=== PATIENT | female | born 1940 | race Caucasian/White ===

== ENCOUNTER 2019-06-28 06:44 | Day surgery (SDC) ==
[2019-06-21 17:21] LABS: URINE SOURCE CLEAN CATCH
--- NOTE | 2019-06-21 17:22 | EKG Report ---
Test Performed on : 06/21/2019 5:06:38 PM Test Reason : PAT Blood Pressure : / mmHG Vent. Rate : 087 BPM Atrial Rate : 087 BPM P-R Int : 226 ms QRS Dur : 110 ms QT Int : 362 ms P-R-T Axes : 041 -04 051 degrees QTc Int : 435 ms Sinus rhythm. with 1st degree AV block. Minimal voltage criteria for LVH, may be normal variant Cannot rule out Anterior infarct , age undetermined Abnormal ECG No previous ECGs available Confirmed by Daly Bergeron MD ([id number]) on 06/23/2019 12:16:01 PM
[2019-06-21 17:24] LABS: BASO# 0.05 X1000 (0.0-0.2); BASO% 0.8 % (0.0-0.8); BILIRUBIN URINE NEGATIVE (NEGATIVE); BLOOD URINE TRACE (NEGATIVE); COLOR YELLOW; EOS# 0.24 X1000 (0.0-0.7); EOS% 3.6 % (0.0-10.0); GLUCOSE URINE NEGATIVE (NEGATIVE); HEMOGLOBIN 12.7 g/dL (12.0-16.0); IMM GRAN# 0.02 X1000 (0.0-0.04); IMM GRAN% 0.3 % (0.0-0.5); KETONE URINE NEGATIVE (NEGATIVE); LEUKOCYTES URINE SMALL (NEGATIVE); LYMPH# 2.14 X1000 (1.2-3.4); LYMPH% 32.4 % (20.5-51.1); MCH 29.7 PG (27-31); MCHC 31.8 g/dL (33-37); MCV 93.5 FL (81-99); MONO# 0.69 X1000 (0.11-0.59); MONO% 10.4 % (1.7-9.3); MPV 9.5 FL (7.4-10.4); NEUT# 3.47 X1000 (1.4-6.5); NEUT% 52.5 % (42.2-75.2); NITRITE URINE NEGATIVE (NEGATIVE); PH URINE 5.5; PLT 263 X1000 (130-400); PROTEIN URINE NEGATIVE (NEGATIVE); RBC 4.28 XMIL (4.2-5.4); RDW 13.1 % (11.5-14.5); SP GRAVITY URINE 1.022; TURBIDITY URINE CLEAR (CLEAR); UR EPITHELIAL CELLS <10 /HPF (<10); URINE BACTERIA 1+ /HPF; URINE RBC <10 /HPF (<10); UROBILINOGEN URINE NORMAL (NORMAL); WBC 6.61 X1000 (4.8-10.8)
[2019-06-21 17:37] LABS: PTT 30.3 Seconds (22.3-41.8)
[2019-06-21 17:47] LABS: HEMOGLOBIN A1C 5.5 % (4.8-6.0)
[2019-06-21 17:51] LABS: INR 1.05; PROTIME 13.8 Seconds (11.0-16.0)
[2019-06-21 18:04] LABS: ALBUMIN 3.8 g/dL (3.5-5.0); CALCIUM 9.2 mg/dL (8.8-10.2); CREATININE 0.9 mg/dL (0.5-0.9); POTASSIUM 4.1 mmol/L (3.5-5.1)
[2019-06-28] MEDS ORDERED: PEPCID ONE (07:12)
[2019-06-28] MEDS ORDERED: COLACE ONE (07:12)
[2019-06-28] MEDS ORDERED: REGLAN ONE (07:12)
[2019-06-28] MEDS ORDERED: KEFZOL 1 GM/D5W 2 GM/100 ML IVPB ONE (07:13)
[2019-06-28] MEDS ORDERED: LR 1,000 ML ONE (07:13)
[2019-06-28] MEDS ORDERED: CELEBREX ONE (07:13)
[2019-06-28] MEDS ORDERED: LYRICA ONE (07:13)
[2019-06-28] MEDS ORDERED: DIPRIVAN 1% ONE ×2 (07:48→10:14)
[2019-06-28] MEDS ORDERED: FENTANYL ONE (08:13)
[2019-06-28] MEDS ORDERED: TORADOL ONE (08:27)
[2019-06-28] MEDS ORDERED: VANCOMYCIN ONE (08:27)
[2019-06-28] MEDS ORDERED: SODIUM CHLORIDE 0.9% ONE (08:27)
[2019-06-28] MEDS ORDERED: DURAMORPH ONE (08:27)
[2019-06-28] MEDS ORDERED: SENSORCAINE 0.25%/EPI 1:200,000 ONE (08:27)
[2019-06-28] MEDS ORDERED: NEOSPORIN G.U. IRRIGANT ONE (08:27)
[2019-06-28] MEDS ORDERED: EXPAREL 1.3% ONE (08:27)
[2019-06-28] MEDS ORDERED: VERSED ONE (08:46)
[2019-06-28] MEDS: CYKLOKAPRON 1,000 MG/NS 2,000 MG/200 ML IVPB ONE ×2 (09:07→10:20)
[2019-06-28] MEDS ORDERED: OFIRMEV 1000 MG/ISOTONIC SOLN 1,000 MG/100 ML BOTTLE ONE (09:30)
[2019-06-28] MEDS ORDERED: DECADRON ONE (09:30)
[2019-06-28] MEDS ORDERED: XYLOCAINE-MPF 2% ONE (09:30)
[2019-06-28] MEDS ORDERED: NEO-SYNEPHRINE ONE (10:47)
[2019-06-28 10:55] LABS: URINE SOURCE CATH
[2019-06-28 11:01] LABS: BILIRUBIN URINE NEGATIVE (NEGATIVE); BLOOD URINE NEGATIVE (NEGATIVE); COLOR YELLOW; GLUCOSE URINE NEGATIVE (NEGATIVE); KETONE URINE NEGATIVE (NEGATIVE); LEUKOCYTES URINE NEGATIVE (NEGATIVE); NITRITE URINE NEGATIVE (NEGATIVE); PH URINE 6.5; PROTEIN URINE NEGATIVE (NEGATIVE); SP GRAVITY URINE 1.018; TURBIDITY URINE CLEAR (CLEAR); UR EPITHELIAL CELLS <10 /HPF (<10); URINE BACTERIA NEGATIVE /HPF; URINE RBC <10 /HPF (<10); URINE WBC <10 /HPF (<10); UROBILINOGEN URINE NORMAL (NORMAL)
[2019-06-28] MEDS ORDERED: NS 1,000 ML ONE (11:26)
[2019-06-28] MEDS ORDERED: MORPHINE IV PRN ×3 (11:30)
[2019-06-28] MEDS ORDERED: OXY IR PO PRN (11:30)
[2019-06-28] MEDS ORDERED: ZOFRAN PO PRN (11:30)
[2019-06-28] MEDS ORDERED: OXY IR ONE (11:47)
--- NOTE | 2019-06-28 12:02 | OPERATIVE NOTE ---
PROCEDURE DATE: 06/28/2019 PREOPERATIVE DIAGNOSIS: Degenerative arthritis, left knee. POSTOPERATIVE DIAGNOSIS: Degenerative arthritis, left knee. PROCEDURE: Left total knee arthroplasty with DePuy Attune size 6 posterior stabilized femur, a size 5 tibial tray, a 6 mm rotating platform tibial insert, and a 35 mm medialized anatomic patella. SURGEON: Felix Prieto MD. WAVE SOLDERING MACHINE OPERATOR: MICHELLE Trimble, who was necessary for proper retraction and manipulation of the extremity during the case and improved efficiency. SECOND SCOURER: Ranjan Awan RN. ANESTHESIA: Spinal. IV FLUIDS: 1000 mL lactated Ringer's. ESTIMATED BLOOD LOSS: 30 mL. TOURNIQUET TIME: 80 minutes at 300 mmHg. COMPLICATIONS: None. INDICATIONS: The patient is an 79-year-old female with a chronic history of worsening pain and discomfort of the left knee. X-rays revealed degenerative osteoarthritis. Recommendation to proceed with left total knee arthroplasty was offered. Risks and benefits of surgery were explained, including the risks of anesthesia, , bleeding, infection, failure to relieve pain, postoperative stiffness, nerve injury, blood clots, and other imponderables. All questions were answered. The patient and family wished to proceed with surgery. DETAILS OF OPERATION: The patient was taken to the operating room and underwent spinal anesthesia. After adequate anesthesia was obtained, the patient placed supine on the operating table. The left lower extremity was subsequently prepped and draped in the usual sterile fashion. A standard anterior incision was made with a skin knife. Medial and lateral skin envelopes were developed. Standard medial parapatellar arthrotomy was then performed. Patella fat pad was excised. Approximately 1 cm anterior to the PCL insertion, a starting reamer was passed. Intramedullary guide with a distal cutting block was pinned in position. Distal cut was then performed in standard fashion. A sizing block was placed and measured size 6, corresponding pins were placed. A size 6 cutting block was placed in position, and anterior, posterior, and chamfer cuts were then made. After this had been performed, attention was then turned to the proximal tibia where using the extramedullary guide proximal tibia cutting block was pinned in position, had good alignment, confirmed with the alignment kathy. The proximal tibia was then resected. Medial and lateral menisci were excised. A curved osteotome was used to remove the posterior osteophytes off the distal femur. A spacer block was placed and there was good soft tissue balance in both flexion and extension. Attention was turned back to the proximal tibia where a size 5 tibial tray appeared to be correct size. This was pinned into position. This followed by a central reamer and a fin punch. After this had been performed, box cutting guide was pinned on the distal femur and box cut was then performed. After this had been performed, the trial femoral component was then placed and 2 lug holes were drilled. Trial tibial insert was then placed and good soft tissue balancing. The patella was everted and resected in standard fashion. Three small drill holes were drilled and the trial patella component was then placed and the patella was reduced and carried through range of motion, had good patellofemoral tracking. The trial components were then removed. Copious irrigation was performed with antibiotic pulsatile lavage while vancomycin was mixed with cement on the back table. Sequential cementing was then performed, first with the tibial tray and excess cement was removed with a Newton followed by the femoral component and then excess cement was removed with a Newton followed by trial tibial insert in full extension and axial loading was maintained while cement cured. Patella component was cemented in standard fashion, patella clamp was placed. While cement was curing, Exparel was placed in deep soft tissue as well as subcutaneous tissue. After the cement had cured, peripheral cement was removed with a small osteotome. The 6 mm rotating platform tibial insert appeared to correct size and the trial insert was removed. Exparel was placed in deep posterior capsule. The wound was copiously irrigated. A 6 mm rotating platform tibial insert was then placed. The knee was then reduced and carried through range of motion, good range of motion, good soft tissue balance, and good patellofemoral tracking. A 1/8 Hemovac drain was placed and was not sewn in. Copious irrigation was performed once again with antibiotic pulsatile lavage. Number 1 Vicryl was used to repair the arthrotomy followed by 2-0 Vicryl repair for subcutaneous tissue and skin luis e. Adaptic, sterile 4 x 4, Webril, and Lincoln wrap was applied to the left lower extremity. The patient tolerated the procedure well, no complications, was transferred to the recovery room in stable condition cc: Felix Prieto MD
--- NOTE | 2019-06-28 12:06 | Diag Imaging Result Doc PS360 ---
KNEE 1-2 VIEWS-LEFT - 06/28/2019 INDICATION: post op total knee TECHNIQUE: Two views COMPARISON: None FINDINGS: There has been left total knee arthroplasty with patellar resurfacing. Alignment is anatomic. No hardware fracture or loosening. IMPRESSION: No complication. Electronically signed by Rony Mackay 06/28/2019 12:03 PM
[2019-06-28] MEDS: COREG PO SCH ×2 (12:08→21:33)
[2019-06-28] MEDS: NS 1,000 ML IV SCH ×2 (12:39→21:34)
[2019-06-28] MEDS: PROZAC PO SCH (12:39)
[2019-06-28] MEDS: COZAAR PO SCH (12:39)
[2019-06-28] MEDS: PROTONIX PO SCH (12:39)
[2019-06-28] MEDS: TYLENOL PO SCH (18:18)
[2019-06-28] MEDS: KEFZOL 2 GM/D5W 2 GM/50 ML IVPB IV SCH (18:19)
[2019-06-28] MEDS: PERIDEX MT SCH (21:33)
[2019-06-28] MEDS: OXY IR PO PRN (21:33)
[2019-06-28] MEDS: COLACE PO SCH (21:33)
[2019-06-29] MEDS: KEFZOL 2 GM/D5W 2 GM/50 ML IVPB IV SCH (01:31)
[2019-06-29] MEDS: OXY IR PO PRN ×2 (01:31→10:01)
[2019-06-29] MEDS: TYLENOL PO SCH ×2 (01:31→07:12)
[2019-06-29] MEDS: NS 1,000 ML IV SCH (02:00)
[2019-06-29] MEDS ORDERED: XARELTO PO SCH (06:00)
[2019-06-29] MEDS ORDERED: SYNTHROID PO SCH (07:00)
[2019-06-29 07:08] LABS: HEMATOCRIT 34.6 % (37.0-47.0); HEMOGLOBIN 11.2 g/dL (12.0-16.0)
[2019-06-29 07:46] LABS: AGAP 9; BUN 12 mg/dL (8-22); CALCIUM 8.9 mg/dL (8.8-10.2); CHLORIDE 104 mmol/L (98-107); COSMO 281; CREATININE 0.7 mg/dL (0.5-0.9); ESTIMATED GFR > 60; GLUCOSE 139 mg/dL (70-104); POTASSIUM 4.1 mmol/L (3.5-5.1); SODIUM 140 mmol/L (136-145); TCO2 27 mmol/L (25-35)
--- NOTE | 2019-06-29 08:39 | ORTHOPAEDICS PROGRESS NOTE ---
DATE: 06/29/2019 SUBJECTIVE: Ms. Lorenzana is postop day 1 of a left total knee arthroplasty. She has no complaints at this time. She is awaiting discharge this morning. OBJECTIVE: Ms. Lorenzana is lying in bed with her left foot elevated at this time. Her dressing to her surgical incision is clean, dry, and intact. She has active dorsiflexion and plantar flexion of her left foot. Her sensation is intact distally. Her Cunningham has also been removed at this time. ASSESSMENT: Postoperative day 1 of a left total knee arthroplasty. PLAN: Ms. Lorenzana will be discharged home this morning. She will follow up in office in approximately 2 weeks. She will be placed on Xarelto for DVT prophylaxis and Percocet for pain management. For any signs of complications, she is to call the office. Dictated by MICHELLE Trimble for Felix Prieto MD cc: Felix Prieto MD
[2019-06-29 08:47] VITALS: BP 172/92
[2019-06-29] MEDS: COLACE PO SCH (10:00)
[2019-06-29] MEDS: PROZAC PO SCH (10:01)
[2019-06-29] MEDS: COZAAR PO SCH (10:01)
[2019-06-29] MEDS: PERIDEX MT SCH (10:01)
[2019-06-29] MEDS: COREG PO SCH (10:01)
[2019-06-29] MEDS: PROTONIX PO SCH (10:01)
== END 2019-06-29 11:02 | disposition home health service (06) ==
LOC: 4N 06:44 → OR 06:44
PROVIDERS: ATTEND Orthopaedic Surgery Adult Reconstructive Orthopaedic Surgery